=== PATIENT | male | born 1970 | race Caucasian/White ===

== ENCOUNTER 2021-03-11 14:09 | Outpatient (REF) | payer OTHER, SELFPAY ==
--- NOTE | ~2021-03-11 | XR_ITS ---
EXAMINATION: XR right fingers. CLINICAL INFORMATION: Pain in right fingers. COMPARISON: None TECHNIQUE: 3 views of the right finger. FINDINGS: The bones and soft tissues are normal. No fracture. Alignment is anatomic. Joint spaces are maintained. XR/XR finger RT min 2V IMPRESSION: Unremarkable right finger radiographs.
== END 2021-03-11 14:10 | disposition home or self-care (01) ==
LOC: HO.HMGCX 14:09
PROVIDERS: PCP Internal Medicine; Visit Provider Nurse Practitioner Family
DX: Z13.89 Encounter for screening for other disorder (principal)
CPT/HCPCS: 73140

== ENCOUNTER 2025-03-21 09:12 | Outpatient (AMB) | payer OTHER, SELFPAY ==
--- NOTE | 2025-03-21 09:20 | AM.OFFWIN_ITS ---
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 Additionally, he has taken ibuprofen and Tylenol intermittently over the past 3 weeks. Patient denies any numbness or tingling in his left lower extremity but states that the pain does radiate towards his anterior left hip. Review of Systems Const All systems reviewed & are unremarkable except as noted in HPI and below Reports no additional complaints, Denies body aches, Denies chills and Denies fever(s) Eyes Reports no additional complaints Card Reports no additional complaints Resp Reports no additional complaints Musc Reports back pain, Denies arthralgias, Denies limited range of motion, Denies muscle weakness, Denies numbness, Denies radiating pain into limb and Denies tingling Skin/Breast Reports system reviewed and no additional complaints, except as documented Neuro Reports no additional complaints, Denies numbness and Denies tingling Psych Reports no additional complaints Physical Exam Vital Signs: Last Vital Signs Temp 98.4 F 03/21/25 09:23 Pulse 73 03/21/25 09:23 Resp 16 03/21/25 09:23 BP 148/94 H 03/21/25 09:23 Pulse Ox 97 03/21/25 09:23 Oxygen Delivery Method Room Air 03/21/25 09:23 BMI result Body Mass Index 42.5 Const General: cooperative, healthy appearing, comfortable, no acute distress, well developed, alert, awake and Physically active; No ill appearing or lethargic Nutritional Appearance: overweight Orientation/consciousness: patient oriented x3 and No lethargic Limitations: no limitations Back/Spine/Pelvis Thoracic/Lumbar Spine: thoracic and lumbar spine normal to inspection, No mass, pain with thoraco-lumbar ROM, paraspinal muscle tenderness on the left in the mid lumbar, No thoraco-lumbar spasm, No thoracic spinal tenderness, No lumbar spinal tenderness and No straight leg raise positive Sacroiliac joints: on the left tender to palpation Sacrum: no tenderness Coccyx: no tenderness Skin General skin exam: no rashes or lesions noted Neuro General: patient oriented x3 Extrem Left lower extremity: normal to inspection, full ROM, hip/thigh Details: tenderness Location: of the hip Location: laterally; not of the proximal upper leg and not of the mid upper leg; no swelling, knee Details: normal ROM and lower leg Details: no edema; no tenderness and no palpable cords; no edema Psych Appearance: grossly normal Mental Status: mental status grossly normal Insight: Good insight present (Psych) Judgement: Good judgement present (Psych) Assessment & Plan Assessment & Plan (1) Low back pain potentially associated with radiculopathy: Comment: Patient presents with a history of 3 weeks of back pain that has been inadequately treated. Patient will be discharged home with an anti-inflammatory as well as a muscle relaxant. He is encouraged to follow up with his primary care physician to obtain a formal physical therapy consultation. Code(s): M54.50 - Low back pain, unspecified Plan: Naprosyn 500 mg b.i.d., methocarbamol 750 mg q.8 hours. Medications: New methocarbamol 750 mg PO Q8H 30 tabs 0RF naproxen (Naprosyn) 500 mg PO BID 20 tabs 0RF Coding Level of Care Code Est Pt Level 3 (09179) Diagnoses Low back pain potentially associated with radiculopathy M54.50 Time Spent (min) 20
[2025-03-21 09:23] VITALS: BP 148/94; PULSE 73; RESP 16; TEMP 36.9; O2SAT 97; BMI 42.5
== END 2025-03-21 09:52 | disposition home or self-care (01) ==
PROVIDERS: PCP Internal Medicine; Visit Provider Physician Assistant
DX: M54.50 Low back pain, unspecified (principal)